=== PATIENT | female | born 1990 | race African-American/Black ===

== ENCOUNTER 2021-01-14 04:53 | Inpatient (IN) | payer MEDICAID ==
[~2021-01-14] VITALS: Ht 162.6 cm; Wt 89.4 kg
[2021-01-14] MEDS ORDERED: LACTATED RINGERS 1,000 ML IV SCH (06:00)
[2021-01-14] MEDS ORDERED: METHYLERGONOVINE MALEATE 0.2 MG/ML IM PRN (06:00)
[2021-01-14] MEDS ORDERED: NALOXONE HCL 0.4 MG/ML 1ML VIAL IM PRN (06:00)
[2021-01-14] MEDS ORDERED: CARBOPROST TROMETHAMINE 250 MCG/ML AMPUL IM PRN (06:00)
[2021-01-14] MEDS ORDERED: BUTORPHANOL TARTRATE 2 MG/ML VIAL IV PRN (06:00)
[2021-01-14] MEDS ORDERED: DEXT 5%/LR + PITOCIN 20UNITS/L 1,000 ML IV SCH ×2 (06:00→15:45)
[2021-01-14] MEDS ORDERED: MISOPROSTOL 200MCG TABLET VG SCH (06:00)
[2021-01-14] MEDS ORDERED: LIDOCAINE HCL 1% 20ML VIAL (Pyxis) INJ INFIL SCH (06:00)
[2021-01-14 06:25] LABS: CLARITY URINE CLEAR (CLEAR); COLOR URINE YELLOW (YELLOW); KETONES URINE 1+ (NEGATIVE); LEUKOCYTE ESTERASE URINE 1+ (NEGATIVE); NITRITE URINE NEGATIVE (NEGATIVE); OCCULT BLOOD URINE 2+ (NEGATIVE); PH URINE 6.5 (4.5-8.0); PROTEIN URINE NEGATIVE (NEGATIVE); SPECIFIC GRAVITY URINE 1.017 (1.005-1.030); UROBILINOGEN URINE 0.2 E.U./dL (0.2-1.0)
[2021-01-14 06:26] LABS: BASOPHILS % 0.2 % (0.0-2.0); EOSINOPHILS % 0.1 % (0.0-5.0); HEMATOCRIT. 33.1 % (36.0-48.0); HEMOGLOBIN. 11.2 g/dL (12.0-16.0); LYMPHOCYTES % 11.5 % (20.0-50.0); MEAN CORPUSCULAR HEMOGLOBIN 30.4 pg (28.0-32.0); MEAN CORPUSCULAR VOLUME 90.2 fL (81.0-99.0); MEAN PLATELET VOLUME 7.2 fl (7.4-10.4); NEUTROPHILS % 84.2 % (40.0-76.0); PLATELET 289 x1000/uL (130-400); RED BLOOD CELL COUNT 3.67 mill/uL (4.2-5.4); RED CELL DISTRIBUTION WIDTH 14.1 % (11.6-14.6)
[2021-01-14] MEDS ORDERED: LIDOCAINE HCL 2%/EPINEPHRINE 1:100,000 20 ML VIAL INFIL ONE (06:30)
[2021-01-14] MEDS ORDERED: EPHEDRINE SULFATE 50MG/ML VIAL ONE (06:30)
[2021-01-14 06:38] LABS: INR 0.9; PARTIAL THROMBOPLASTIN TIME 29.9 sec (23.4-31.0); PROTHROMBIN TIME 9.9 sec (9.6-11.0)
[2021-01-14 06:39] LABS: METHADONE URINE SCREEN NEGATIVE (NEGATIVE); OPIATES URINE SCREEN NEGATIVE (NEGATIVE); PHENCYCLIDINE URINE SCREEN NEGATIVE (NEGATIVE)
[2021-01-14 06:40] LABS: *AMPHETAMINES SCREEN URINE NEGATIVE (NEGATIVE); *BARBITURATES SCREEN URINE NEGATIVE (NEGATIVE); *BENZODIAZEPINES SCREEN URINE NEGATIVE (NEGATIVE); *COCAINE SCREEN URINE NEGATIVE (NEGATIVE); CANNABINOID URINE SCREEN NEGATIVE (NEGATIVE)
[2021-01-14] MEDS ORDERED: ROPIVACAINE HCL/PF EPIDURAL 200 ML EP SCH (07:00)
[2021-01-14 07:20] LABS: HEPATITIS B SURFACE ANTIGEN NEGATIVE
[2021-01-14] MEDS ORDERED: DEXT 5%/LR + PITOCIN 20UNITS/L 1,000 ML IV ONE (10:30)
[2021-01-14 15:45] VITALS: BP 120/69
[2021-01-14] MEDS ORDERED: BISACODYL 10MG SUPP PR PRN (15:45)
[2021-01-14] MEDS ORDERED: RHO(D) IMMUNE GLOBULIN 300 MCG/SYR IM PRN (15:45)
[2021-01-14] MEDS ORDERED: LANOLIN OINT 7GM TUBE TOP PRN (15:45)
[2021-01-14] MEDS ORDERED: BENZOCAINE/LANOLIN/ALOE VERA SPRAY TOP PRN (15:45)
[2021-01-14] MEDS ORDERED: GLYCERIN/WITCH HAZEL LEAF MEDICATED PAD TOP PRN (15:45)
[2021-01-14] MEDS ORDERED: IBUPROFEN 400MG TABLET PO PRN (15:45)
[2021-01-14] MEDS ORDERED: HEMORRHOIDAL SUPP PR PRN (15:45)
[2021-01-14] MEDS: IBUPROFEN 800MG TABLET PO PRN ×2 (16:06→21:25)
[2021-01-14 19:30] VITALS: BP 110/64
[2021-01-14] MEDS: DOCUSATE SODIUM 100MG CAPSULE PO SCH (21:21)
[2021-01-15] MEDS: IBUPROFEN 800MG TABLET PO PRN ×3 (03:31→23:18)
[2021-01-15 04:00] VITALS: BP 108/51
[2021-01-15 07:03] LABS: HEMATOCRIT 34.4 % (36.0-48.0); HEMOGLOBIN 11.3 g/dL (12.0-16.0)
[2021-01-15 08:00] VITALS: BP 112/61
[2021-01-15] MEDS ORDERED: PRENATAL VIT/FE FUMARATE/FA TABLET PO SCH (09:00)
[2021-01-15 16:00] VITALS: BP 115/68
[2021-01-15 20:30] VITALS: BP 113/59
[2021-01-15] MEDS: DOCUSATE SODIUM 100MG CAPSULE PO SCH (21:31)
[2021-01-16] MEDS ORDERED: IBUP-2030 PO (00:35)
[2021-01-16 04:45] VITALS: BP 109/67
[2021-01-16 08:06] VITALS: BP 111/68
== END 2021-01-16 10:45 | disposition home or self-care (01) | DRG 560 ==
LOC: OBSVTOIN 04:53 → 8 EST LDRP 04:53 → 8EST 16:02
PROVIDERS: ADMIT Obstetrics & Gynecology; ATTEND Obstetrics & Gynecology
PROC: 10E0XZZ Delivery of Products of Conception, External Approach (ICD-10-PCS; principal; 2021-01-14)
PROC: 3E0R3BZ Introduction of Anesthetic Agent into Spinal Canal, Percutaneous Approach (ICD-10-PCS; 2021-01-15)
PROC: 00HU33Z Insertion of Infusion Device into Spinal Canal, Percutaneous Approach (ICD-10-PCS; 2021-01-15)
DX: O80 Encounter for full-term uncomplicated delivery (principal); Z37.0 Single live birth; Z3A.39 39 weeks gestation of pregnancy
CPT/HCPCS: 36415; 76815; 80305; 81003; 85014; 85018; 85025; 86592; 86703; 86762; 86850; 86900; 87340; 99281; J2590; J2795; J3490; J7120; A4315